=== PATIENT | female | born 1980 | race Caucasian/White ===

== ENCOUNTER 2017-04-19 11:15 | Emergency (ER) | payer SELFPAY ==
[2017-04-19 13:23] VITALS: BP 120/73
--- NOTE | 2017-04-19 13:37 | UC ---
Throat Pain/Nasal Nabli HPI - HPI Summary HPI Summary: Two weeks of congestion. sHe is now getting sinus pain and left ear pain. No fever. The cough is present as well. - History of Current Complaint Chief Complaint: UCRespiratory Stated Complaint: CHEST CONGESTION, ST, PLEITEZ Time Seen by Provider: 04/19/17 13:29 Hx Obtained From: Patient Hx Last Menstrual Period: 04/04/17 Onset/Duration: Gradual Onset, Lasting Weeks Severity: Moderate Pain Intensity: 5 Cough: Productive Associated Signs & Symptoms: Positive: Wheezing, Hoarseness, Sinus Discomfort. Negative: Fever, Vomiting, Rash - Epiglottits Risk Factors Epiglottis Risk Factors: Negative - Allergies/Home Medications Allergies/Adverse Reactions: Allergies Allergy/AdvReac Type Severity Reaction Status Date / Time Sulfa (Sulfonamide Allergy See Comment Verified 04/19/17 13:24 Antibiotics) Home Medications: Home Medications D-Methorphan/PE/Acetaminophen [Tylenol Cold Multi-Symp Caplet] 1 each PO [History] PMH/Surg Hx/FS Hx/Imm Hx Previously Healthy: No - smoker. sinusitis - Surgical History Surgical History: None - Family History Known Family History: Positive: Other - no related sinus disease. - Social History Alcohol Use: Occasionally Substance Use Type: None Smoking Status (MU): Light Every Day Tobacco Smoker Type: Cigarettes Amount Used/How Often: 4-5 cigarettes daily Review of Systems ENT: Ear Ache, Sinus Congestion, Sinus Pain/Tenderness Respiratory: Cough All Other Systems Reviewed And Are Negative: Yes Physical Exam Triage Information Reviewed: Yes Appearance: Well-Appearing, No Pain Distress, Well-Nourished Vital Signs: Initial Vital Signs Temp 98.4 F 04/19/17 13:19 Pulse 75 04/19/17 13:19 Resp 18 04/19/17 13:19 BP 120/73 04/19/17 13:19 Pulse Ox 98 04/19/17 13:19 Vital Signs Reviewed: Yes Eye Exam: Normal Eyes: Positive: Conjunctiva Clear ENT: Positive: Pharynx normal, Nasal congestion, TM bulging, TM dull, TM red, Sinus tenderness, Uvula midline. Negative: Nasal drainage, Tonsillar swelling, Tonsillar exudate, Trismus, Muffled voice, Hoarse voice, Dental tenderness Neck: Positive: Supple, Nontender, No Lymphadenopathy Respiratory: Positive: Lungs clear, Normal breath sounds, No respiratory distress, No accessory muscle use. Negative: Respiratory distress, Decreased breath sounds, Accessory muscle use, Crackles, Rhonchi, Stridor, Wheezing Cardiovascular: Positive: No Murmur, Pulses Normal Abdomen Description: Positive: No Organomegaly, Soft. Negative: Distended, Guarding Musculoskeletal: Positive: Strength Intact, ROM Intact, No Edema Neurological: Positive: Alert, Muscle Tone Normal. Negative: Fatigued Psychological: Positive: Age Appropriate Behavior Skin: Negative: rashes Throat Pain/Nasal Course/Dx - Differential Dx/Diagnosis Provider Diagnoses: sinusitis. ear infection left. Discharge - Discharge Plan Condition: Good Disposition: HOME Prescriptions: Amoxicillin PO (*) [Amoxicillin 500 MG CAP*] 500 mg PO TID #30 cap Patient Education Materials: Ear Infection (ED) Referrals: Veronica Maza MD [Primary Care Provider] - Additional Instructions: Decongestants and nasal irrigation will help as well.
== END 2017-04-19 13:44 | disposition home or self-care (01) ==
LOC: UCCORT 11:15
DX: J32.9 Chronic sinusitis, unspecified (principal); H66.92 Otitis media, unspecified, left ear; F17.210 Nicotine dependence, cigarettes, uncomplicated
CPT/HCPCS: 87502; 99202; G0463

== ENCOUNTER 2019-01-20 12:04 | Emergency (ER) | payer OTHER ==
--- NOTE | 2019-01-20 13:55 | UC ---
Throat Pain/Nasal Nabil HPI - HPI Summary HPI Summary: 38 yo with a 4 week history of congestion, cough and recurrent sinus symptoms, with off and on subjective fever and chills. Has felt exceptionally fatigued for the past week, with excess sleep. 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 Episodic, no specific injury, and she does not have any urinary symptoms, and no hemturia (offered to check UA, but she could not void today). - History of Current Complaint Stated Complaint: FEVER SORE THROAT RIGHT LOW BACK PAIN CONGESTION Time Seen by Provider: 01/20/19 13:47 Hx Obtained From: Patient Hx Last Menstrual Period: 04/04/17 Onset/Duration: Gradual Onset, Lasting Weeks, Worse Since - past 3 days. Severity: Moderate Cough: Nonproductive - not much coughing. Associated Signs & Symptoms: Positive: Sinus Discomfort Related History: Smoking - Epiglottits Risk Factors Epiglottis Risk Factors: Negative - Allergies/Home Medications Allergies/Adverse Reactions: Allergies Allergy/AdvReac Type Severity Reaction Status Date / Time Sulfa (Sulfonamide Allergy See Comment Verified 01/20/19 13:51 Antibiotics) Home Medications: Home Medications Iud 1 ONCE 01/20/19 [History] PMH/Surg Hx/FS Hx/Imm Hx Previously Healthy: Yes - does not do regular check ups. - Surgical History Surgical History: None - Family History Known Family History: Positive: Other - no related sinus disease. No hx renal disease., Non-Contributory Negative: Respiratory Disease - Social History Occupation: Employed Full-time Lives: With Family Alcohol Use: Occasionally Substance Use Type: None Smoking Status (MU): Light Every Day Tobacco Smoker Type: Cigarettes Amount Used/How Often: 4-5 cigarettes daily Review of Systems All Other Systems Reviewed And Are Negative: Yes Constitutional: Positive: Fever - subjective, Fatigue Skin: Positive: Rash - on chin for the past several weeks, skin dry and erythematous Eyes: Positive: Negative ENT: Positive: Sore Throat, Sinus Congestion, Sinus Pain/Tenderness Respiratory: Positive: Negative, Cough - occasional Cardiovascular: Negative: Palpitations, Chest Pain Gastrointestinal: Positive: Negative Genitourinary: Positive: Other - IUD for contraception, irregular menses.. Negative: Dysuria, Hematuria, Frequency, Urgency Motor: Positive: Other - right low back pain not associated to movement. Neurovascular: Positive: Negative Musculoskeletal: Positive: Myalgia Neurological: Positive: Headache Psychological: Positive: Anxious Is Patient Immunocompromised?: No Physical Exam Triage Information Reviewed: Yes Appearance: No Pain Distress, Ill-Appearing - looks fatigued and unwell ENT: Positive: Pharyngeal erythema, TMs normal, Sinus tenderness - maxillary, bilateral. Negative: Tonsillar swelling, Tonsillar exudate Dental Exam: Normal Neck: Positive: Supple, Nontender, No Lymphadenopathy, Other: - no tenderness or enlargement of the thyroid Respiratory: Positive: Lungs clear, Normal breath sounds, No respiratory distress Cardiovascular: Positive: RRR, No Murmur Abdomen Description: Negative: CVA Tenderness (R), CVA Tenderness (L) Musculoskeletal: Positive: Strength Intact, ROM Intact - full rom in lumbar spine, pain free at this time, and cannot provoke pain. Neurological Exam: Normal Psychological Exam: Normal Skin: Positive: Rashes - skin around mouth, chin, nasal folds is erythematous with mild scale. Throat Pain/Nasal Course/Dx - Course Course Of Treatment: doxcycline for sinusitis, and will help with perioral dermatitis. 1% hydrocortisone to the face for a limited time. Follow up with PMD if fatigue persists. right low back pain not particularly suggestive of renal disease but advised follow up if persists. (Declined waiting for UA today). - Differential Dx/Diagnosis Differential Diagnosis/HQI/PQRI: Pharyngitis, Sinusitis, URI, Other - perioral dermatitis. Provider Diagnosis: Frontal sinusitis Discharge ED - Sign-Out/Discharge Documenting (check all that apply): Patient Departure All imaging exams completed and their final reports reviewed: No Studies - Discharge Plan Condition: Stable Disposition: HOME Prescriptions: DOXYcycline CAP(*) [DOXYcycline 100MG CAP(*)] 100 mg PO BID #20 cap Patient Education Materials: Sinusitis (ED), Eczema (ED) Referrals: Channing Bernardo MD [Primary Care Provider] - Additional Instructions: Doxycyline will treat your sinus infection, and could help with the rash. Anticipate improvement in sinus symptoms in 4 or 5 days. If fatigue persists beyond treatment, please see your primary care physician for assessment and to consider lab work. You have marlin-oral dermatitis (some association with eczematous types of rashes) . You can safely use 1% hydrocortisone cream to the skin around the nose, mouth and chin. Use a small amount twice daily. Ensure that you are using good facial moisturizers (CeraVe or neutrogena might be helpful in addition to the steroid cream). - Billing Disposition and Condition Condition: STABLE Disposition: Home
[2019-01-20 13:57] VITALS: BP 116/69
== END 2019-01-20 14:31 | disposition home or self-care (01) ==
LOC: UCCORT 12:04
DX: J32.1 Chronic frontal sinusitis (principal); R53.83 Other fatigue; M54.5 Low back pain; G89.29 Other chronic pain; F17.210 Nicotine dependence, cigarettes, uncomplicated; Z88.2 Allergy status to sulfonamides; Z97.5 Presence of (intrauterine) contraceptive device
CPT/HCPCS: 99212; G0463